=== PATIENT | male | born 1940 | race Two or more races ===

== ENCOUNTER 2020-01-06 13:28 | Emergency (ER) | payer MEDICARE, OTHER ==
[~2020-01-06] VITALS: Ht 160 cm; Wt 68.0 kg
[2020-01-06] MEDS ORDERED: FLOMAX0.4 MG ORAL (13:40)
--- NOTE | 2020-01-06 13:40 | NUR ---
ED Nurse Note: amulated to ed with family member c/o burning urination x last night and cp with sob since this am. tachycardic at 121 with bp of 134/92. ao4. nad. changed into gown; attached to monitor; safety measures met.
[2020-01-06] MEDS ORDERED: cefTRIAXone 1 GM in NS 55 ML IVPB ONE (13:45)
--- NOTE | 2020-01-06 13:45 | NUR ---
ED Nurse Note: iv access established. blood, lactic, blood cultures, urine collected; sent down to lab. ekg done at bedside; sinus tach
[2020-01-06] MEDS ORDERED: high cholesterol (13:54)
[2020-01-06] MEDS ORDERED: hypertension (13:54)
--- NOTE | 2020-01-06 14:01 | Emergency Room Report ---
History of Present Illness General Chief Complaint: Chest Pain Source: Patient Present Illness HPI Disclaimer: Please note that this report is being documented using EasyRun technology. This can lead to erroneous entry secondary to incorrect interpretation by the dictating instrument. HPI: 79-year-old male history of active prostate cancer with possible metastases to the spine currently being medicated but does not know under what regimen presents for evaluation of fever and dysuria. States he has been feeling weak with body wide aches and pains as well as burning sensation over the past 2 days. He felt weak and tired today. Came in for initial evaluation however on arrival he complained of some shortness of breath and tightness across the chest. Denies any history of CAD but he does have a history of hypertension hyperlipidemia. Denies any cough. States his chest pain shortness of breath are resolving. He has been complaining of dysuria without hematuria over the past few days. Denies any rash or skin breakdown. Denies headaches, chills, sore throat, nasal congestion, cough. He noted nausea without vomiting and without diarrhea yesterday. Decreased appetite over the past few days. PMH: Hypertension, hyperlipidemia, prostate cancer PSH: Hernia repair Allergies: Denies Social Hx: Denies Allergies: Coded Allergies: No Known Allergies (Unverified , 01/06/20) Nursing Documentation-PMH Past Medical History: No History, Except For Hx Hypertension: Yes - high cholesterol Hx Cancer: Yes - prostate Review of Systems All Other Systems: negative except mentioned in HPI Physical Exam Vital Signs Date Time Temp Pulse Resp B/P (MAP) Pulse Ox O2 Delivery O2 Flow Rate FiO2 01/06/20 13:37 100.6 121 18 134/92 (106) 95 Room Air General: Awake and alert, no acute distress HEENT: NC/AT. EOMI. hard of hearing. Dry mucous membranes. Neck: Supple, trachea midline Chest Wall: No tenderness, no deformity Cardiovascular: Tachycardic. S1 and S2 normal. No murmur appreciated Resp: Normal work of breathing. No cough, wheezing or crackles appreciated Abdomen: Abdomen is soft, nondistended. Mild tenderness over the lower abdomen particularly the suprapubic region. No right lower quadrant tenderness or rebound. Skin: Intact. No abrasions, laceration or rash over the exposed skin MSK: Normal tone and bulk. Moving all extremities. No obvious deformity. Neuro: Awake and alert. Mentating appropriately. Procedures Critical Care Time Critical Care Time Total critical care time: Approximately 31 minutes Due to a high probability of clinically significant, life threatening deterioration, the patient required the highest level of preparedness to intervene emergently and I personally spent this critical care time directly and personally managing the patient. This critical care time included obtaining a history, examining the patient, pulse oximetry, ordering and reviewing studies , ordering treatments, evaluating response to treatment and updating management plan as needed, frequent reassessment and discussion with other providers as well as arranging for ultimate disposition. This critical to care time was performed to assess and manage the high probability of life-threatening deterioration that could result in multiorgan failure. This critical care time is separate from the separately billable procedures and treating other patients. Medical Decision Making Diagnostic Impression: Primary Impression: Sepsis Additional Impression: UTI (urinary tract infection) ER Course 79-year-old male presents for evaluation of dysuria and then complaining of shortness of breath and chest discomfort. He arrives febrile and tachycardic. Differential includes was not limited to sepsis, UTI, pyelonephritis, urosepsis , ACS, angina, myocarditis, pericarditis, pneumonia, bronchitis, viral syndrome to name a few. Start a broad metabolic infectious work-up. Will initiate a 30 cc/kg fluid bolus and give empiric antibiotics. Patient will require admission. Laboratory Tests Test 01/06/20 13:45 01/06/20 14:00 01/06/20 15:00 White Blood Count 16.7 K/UL (4.8-10.8) H Red Blood Count 4.29 M/UL (4.70-6.10) L Hemoglobin 13.0 G/DL (14.2-18.0) L Hematocrit 37.0 % (42.0-52.0) L Mean Corpuscular Volume 86 FL (80-99) Mean Corpuscular Hemoglobin 30.3 PG (27.0-31.0) Mean Corpuscular Hemoglobin Concent 35.1 G/DL (32.0-36.0) Red Cell Distribution Width 11.2 % (11.6-14.8) L Platelet Count 209 K/UL (150-450) Mean Platelet Volume 4.3 FL (6.5-10.1) L Neutrophils (%) (Auto) % (45.0-75.0) Lymphocytes (%) (Auto) % (20.0-45.0) Monocytes (%) (Auto) % (1.0-10.0) Eosinophils (%) (Auto) % (0.0-3.0) Basophils (%) (Auto) % (0.0-2.0) Differential Total Cells Counted 100 Neutrophils % (Manual) 83 % (45-75) H Lymphocytes % (Manual) 7 % (20-45) L Monocytes % (Manual) 1 % (1-10) Eosinophils % (Manual) 0 % (0-3) Basophils % (Manual) 0 % (0-2) Band Neutrophils 9 % (0-8) H Platelet Estimate Adequate Platelet Morphology Normal Red Blood Cell Morphology Normal Prothrombin Time 10.7 SEC (9.30-11.50) Prothrombin Time INR 1.0 (0.9-1.1) Activated Partial Thromboplast Time 33 SEC (23-33) Sodium Level 136 MMOL/L (136-145) Potassium Level 4.0 MMOL/L (3.5-5.1) Chloride Level 102 MMOL/L (98-107) Carbon Dioxide Level 21 MMOL/L (21-32) Anion Gap 13 mmol/L (5-15) Blood Urea Nitrogen 17 mg/dL (7-18) Creatinine 1.1 MG/DL (0.55-1.30) Estimate Glomerular Filtration Rate > 60 mL/min (>60) Glucose Level 152 MG/DL (74-106) H Lactic Acid Level 2.20 mmol/L (0.4-2.0) H Pending Calcium Level 9.1 MG/DL (8.5-10.1) Total Bilirubin 1.0 MG/DL (0.2-1.0) Aspartate Amino Transferase (AST) 31 U/L (15-37) Alanine Aminotransferase (ALT) 33 U/L (12-78) Alkaline Phosphatase 91 U/L (46-116) Troponin I 0.000 ng/mL (0.000-0.056) Pro-B-Type Natriuretic Peptide 262 pg/mL (0-125) H Total Protein 7.7 G/DL (6.4-8.2) Albumin 3.4 G/DL (3.4-5.0) Globulin 4.3 g/dL Albumin/Globulin Ratio 0.8 (1.0-2.7) L Acetaminophen Level 6 MCG/ML (10-30) L Urine Color Pale yellow Urine Appearance Slightly cloudy Urine pH 6 (4.5-8.0) Urine Specific [place] 1.010 (1.005-1.035) Urine Protein 1+ (NEGATIVE) H Urine Glucose (UA) Negative (NEGATIVE) Urine Ketones Negative (NEGATIVE) Urine Blood 4+ (NEGATIVE) H Urine Nitrite Negative (NEGATIVE) Urine Bilirubin Negative (NEGATIVE) Urine Urobilinogen Normal MG/DL (0.0-1.0) Urine Leukocyte Esterase 3+ (NEGATIVE) H Urine RBC 5-10 /HPF (0 - 0) H Urine WBC 30-40 /HPF (0 - 0) H Urine Squamous Epithelial Cells None /LPF (NONE/OCC) Urine Bacteria Moderate /HPF (NONE) H EKG Diagnostic Results EKG Time: 12:46 Rate: tachycardiac Rhythm: NSR ST Segments: no acute changes Other Impression Sinus tachycardia. Normal axis. Normal intervals. No ST segment changes. No obvious [place] changes. Nonspecific T wave changes. Rhythm Strip Diag. Results Rhythm Strip Time: 12:46 EP Interpretation: yes Rate: 110s Rhythm: NSR, no PVC's, no ectopy Chest X-Ray Diagnostic Results Chest X-Ray Diagnostic Results : Chest X-Ray Ordered: Yes # of Views/Limited/Complete: 1 View Indication: Shortness of Breath EP Interpretation: Yes Interpretation: no consolidation, no effusion, no pneumothorax Impression: No acute disease Electronically Signed by: Electronically signed by Dr. Bryant Chakraborty Reevaluation Time: 15:29 Last Vital Signs Date Time Temp Pulse Resp B/P (MAP) Pulse Ox O2 Delivery O2 Flow Rate FiO2 01/06/20 13:37 100.6 121 18 134/92 (106) 95 Room Air Reevaluation Impression Sepsis reevaluation: I, Dr. Bryant Chakraborty, reevaluate the patient at 1529 Capillary refill: Less than 2 seconds Heart rate: 94 Respiratory rate:16 Initial Lactate: 2.2 Repeat Lactate: pending No signs of fluid overload Patient is improving after receiving IV fluids. No longer tachycardic. Resting comfortably. Chest x-ray unremarkable and EKG is nonischemic. Urinalysis concerning for acute urinary tract infection likely the source of his elevated white count, elevated lactate. Strong consideration for urosepsis at this time. He is received IV fluids and antibiotics. Patient will be transferred to [facility] per his insurance plan. He is stable for transfer. Disposition: XFER [facility] Condition: Stable Bryant Chakraborty MD Jan 06, 2020 14:01
[2020-01-06 14:16] LABS: MEAN CORPUSCULAR VOLUME 86 FL (80-99); PLATELET COUNT 209 K/UL (150-450); RED BLOOD COUNT 4.29 M/UL (4.70-6.10); RED CELL DISTRIBUTION WIDTH 11.2 % (11.6-14.8); WHITE BLOOD COUNT 16.7 K/UL (4.8-10.8)
[2020-01-06 14:17] VITALS: BP 134/92
[2020-01-06 14:32] LABS: ANION GAP 13 mmol/L (5-15); BLOOD UREA NITROGEN 17 mg/dL (7-18); CALCIUM 9.1 MG/DL (8.5-10.1); CARBON DIOXIDE 21 MMOL/L (21-32); CHLORIDE 102 MMOL/L (98-107); CREATININE 1.1 MG/DL (0.55-1.30); SODIUM 136 MMOL/L (136-145)
[2020-01-06 14:41] LABS: ALANINE AMINOTRANSFERASE 33 U/L (12-78); ALBUMIN 3.4 G/DL (3.4-5.0); ALBUMIN/GLOBULIN RATIO 0.8 (1.0-2.7); ALKALINE PHOSPHATASE 91 U/L (46-116); ASPARTATE AMINO TRANSFERASE 31 U/L (15-37)
[2020-01-06 14:58] LABS: BILIRUBIN, URINE NEGATIVE (NEGATIVE); COLOR,URINE PALE YELLOW; GLUCOSE, URINE (UA) NEGATIVE (NEGATIVE); KETONES,URINE NEGATIVE (NEGATIVE); LEUKOCYTE ESTERASE ,URINE 3+ (NEGATIVE); NITRITE,URINE NEGATIVE (NEGATIVE); PH,URINE 6 (4.5-8.0); PROTEIN,URINE 1+ (NEGATIVE); UROBILINOGEN,URINE NORMAL MG/DL (0.0-1.0)
[2020-01-06 15:03] LABS: APPEARANCE,URINE SLIGHTLY CLOUDY
--- NOTE | 2020-01-06 15:12 | NUR ---
ED Nurse Note: reflex lactic drawn; sent down to lab.
[2020-01-06 15:35] VITALS: BP 121/59
--- NOTE | 2020-01-06 15:37 | NUR ---
ED Nurse Note: report given to sabas barragan. patient to be admitted to [facility] under the care of jo lopez. report given to [facility]. patient stable for transfer. patient left via gurney with all belongings and transfer packet. accompanied by family member.
[2020-01-06 15:39] VITALS: BP 121/59
--- NOTE | 2020-01-07 13:03 | Diagnostic Imaging Report ---
Indication: Dyspnea Comparison: None A single view chest radiograph was obtained. Findings: No definite infiltrate or pulmonary vascular congestion identified. The heart is normal size. The aorta is mildly enlarged consistent with atherosclerotic vascular disease. The bones are osteopenic. There are thoracic vertebral enthesophytes at multiple levels. Impression: No acute disease
== END 2020-01-06 15:35 | disposition short-term general hospital (02) ==
LOC: EDBEDREQ 13:54 → EMR 14:08
DX: A41.9 Sepsis, unspecified organism (principal); N39.0 Urinary tract infection, site not specified; E78.5 Hyperlipidemia, unspecified; I10 Essential (primary) hypertension; Z85.46 Personal history of malignant neoplasm of prostate; E78.00 Pure hypercholesterolemia, unspecified; R00.0 Tachycardia, unspecified
CPT/HCPCS: 36415; 71045; 80053; 81003; 83605; 83880; 84484; 85007; 85025; 85610; 85730; 87040; 87086; 87181; 93005; 96361; 96365; 99291; G0480; J0696; J7030

== ENCOUNTER 2020-03-03 11:11 | Emergency (ER) | payer MEDICARE ==
[~2020-03-03] VITALS: Ht 152.4 cm; Wt 54.4 kg
[~2020-03-03 11:11] MED LIST: FLOMAX0.4 MG ORAL; high cholesterol; hypertension
[2020-03-03 11:46] VITALS: BP 168/82
[2020-03-03 12:06] LABS: BASOPHILS % (AUTO) 1.1 % (0.0-2.0); EOSINOPHILS % (AUTO) 0.8 % (0.0-3.0); HEMATOCRIT 35.9 % (42.0-52.0); HEMOGLOBIN 12.5 G/DL (14.2-18.0); MEAN CORPUSCULAR VOLUME 82 FL (80-99); MONOCYTES % (AUTO) 5.1 % (1.0-10.0); PLATELET COUNT 283 K/UL (150-450); RED BLOOD COUNT 4.37 M/UL (4.70-6.10); RED CELL DISTRIBUTION WIDTH 10.9 % (11.6-14.8); WHITE BLOOD COUNT 6.4 K/UL (4.8-10.8)
[2020-03-03 12:22] LABS: ANION GAP 11 mmol/L (5-15); BLOOD UREA NITROGEN 15 mg/dL (7-18); CARBON DIOXIDE 23 MMOL/L (21-32); CHLORIDE 106 MMOL/L (98-107); CREATININE 0.9 MG/DL (0.55-1.30); POTASSIUM 4.8 MMOL/L (3.5-5.1); SODIUM 140 MMOL/L (136-145)
[2020-03-03 12:29] LABS: ALANINE AMINOTRANSFERASE 15 U/L (12-78); ALBUMIN 3.2 G/DL (3.4-5.0); ALBUMIN/GLOBULIN RATIO 0.7 (1.0-2.7); ALKALINE PHOSPHATASE 97 U/L (46-116); ASPARTATE AMINO TRANSFERASE 29 U/L (15-37); BILIRUBIN,TOTAL 0.4 MG/DL (0.2-1.0); CKMB < 0.5 NG/ML (0.0-3.6); CREATINE KINASE 94 U/L (26-308)
[2020-03-03 12:31] VITALS: BP 128/103
--- NOTE | 2020-03-03 12:32 | Emergency Room Report ---
History of Present Illness General Chief Complaint: Chest Pain Source: Patient Present Illness HPI Patient presents with complaints of chest pain midsternal reports that the discomfort comes on at rest Denies any change with position or exertion Denies any headache Ongoing for the past 2 to 3 days however this afternoon while sitting he felt increased heaviness and paramedics were summoned Denies any vomiting or diarrhea denies any fevers or chills denies any pleurisy denies any rash Allergies: Coded Allergies: No Known Allergies (Unverified , 01/06/20) COVID-19 Screening Contact w/high risk pt: No Recent Travel to affected area: No Experienced COVID-19 symptoms?: Yes COVID-19 symptoms experienced: Shortness of Breath Patient History Past Medical History: see triage record Reviewed Nursing Documentation: PMH: Agreed; PSxH: Agreed Nursing Documentation-PMH Past Medical History: No History, Except For Hx Hypertension: Yes Hx Cancer: Yes - prostate Review of Systems All Other Systems: negative except mentioned in HPI Physical Exam Vital Signs Date Time Temp Pulse Resp B/P (MAP) Pulse Ox O2 Delivery O2 Flow Rate FiO2 03/03/20 11:12 98.2 103 21 168/82 (110) 99 Room Air Sp02 EP Interpretation: reviewed, normal General Appearance: well appearing, no apparent distress Head: normocephalic, atraumatic Eyes: bilateral eye PERRL, bilateral eye EOMI ENT: hearing grossly normal, normal pharynx, TMs + canals normal, uvula midline Neck: full range of motion, supple, no meningismus, no bony tend Respiratory: lungs clear, normal breath sounds, no rhonchi, no respiratory distress, no retraction, no accessory muscle use Cardiovascular #1: normal peripheral pulses, regular rate, rhythm, no edema, no gallop, no JVD, no murmur Gastrointestinal: normal bowel sounds, non tender, soft, no mass, no organomegaly, non-distended, no guarding, no hernia, no pulsatile mass, no rebound Genitourinary: no CVA tenderness Musculoskeletal: normal inspection Neurologic: motor strength/tone normal, 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, oriented x3 , sensory intact, responsive Psychiatric: mood/affect normal Skin: no rash Lymphatic: normal inspection, no adenopathy Medical Decision Making Diagnostic Impression: Primary Impression: Acute coronary syndrome ER Course Patient is a fairly complex patient with multiple differential to consideration including but not limited to cardiac cardiopulmonary and vascular emergencies Patient's blood work is appropriate EKG shows nonspecific findings Patient did receive aspirin at this time does not have any active chest pain and nitroglycerin has been held On reevaluation patient remains chest pain-free patient admitted for further inpatient care Labs Test 03/03/20 11:30 03/03/20 14:25 White Blood Count 6.4 K/UL (4.8-10.8) Red Blood Count 4.37 M/UL (4.70-6.10) Hemoglobin 12.5 G/DL (14.2-18.0) Hematocrit 35.9 % (42.0-52.0) Mean Corpuscular Volume 82 FL (80-99) Mean Corpuscular Hemoglobin 28.7 PG (27.0-31.0) Mean Corpuscular Hemoglobin Concent 35.0 G/DL (32.0-36.0) Red Cell Distribution Width 10.9 % (11.6-14.8) Platelet Count 283 K/UL (150-450) Mean Platelet Volume 4.5 FL (6.5-10.1) Neutrophils (%) (Auto) 67.0 % (45.0-75.0) Lymphocytes (%) (Auto) 26.0 % (20.0-45.0) Monocytes (%) (Auto) 5.1 % (1.0-10.0) Eosinophils (%) (Auto) 0.8 % (0.0-3.0) Basophils (%) (Auto) 1.1 % (0.0-2.0) Sodium Level 140 MMOL/L (136-145) Potassium Level 4.8 MMOL/L (3.5-5.1) Chloride Level 106 MMOL/L (98-107) Carbon Dioxide Level 23 MMOL/L (21-32) Anion Gap 11 mmol/L (5-15) Blood Urea Nitrogen 15 mg/dL (7-18) Creatinine 0.9 MG/DL (0.55-1.30) Estimat Glomerular Filtration Rate > 60 mL/min (>60) Glucose Level 114 MG/DL (74-106) Lactic Acid Level 1.90 mmol/L (0.4-2.0) Calcium Level 9.0 MG/DL (8.5-10.1) Total Bilirubin 0.4 MG/DL (0.2-1.0) Aspartate Amino Transf (AST/SGOT) 29 U/L (15-37) Alanine Aminotransferase (ALT/SGPT) 15 U/L (12-78) Alkaline Phosphatase 97 U/L (46-116) Total Creatine Kinase 94 U/L (26-308) Creatine Kinase MB < 0.5 NG/ML (0.0-3.6) Creatine Kinase MB Relative Index 0.5 Troponin I 0.000 ng/mL (0.000-0.056) Pro-B-Type Natriuretic Peptide 70 pg/mL (0-125) Total Protein 7.8 G/DL (6.4-8.2) Albumin 3.2 G/DL (3.4-5.0) Globulin 4.6 g/dL Albumin/Globulin Ratio 0.7 (1.0-2.7) Lipase 164 U/L (73-393) Urine Color Pale yellow Urine Appearance Clear Urine pH 7 (4.5-8.0) Urine Specific [place] 1.010 (1.005-1.035) Urine Protein Negative (NEGATIVE) Urine Glucose (UA) Negative (NEGATIVE) Urine Ketones Negative (NEGATIVE) Urine Blood 2+ (NEGATIVE) Urine Nitrite Negative (NEGATIVE) Urine Bilirubin Negative (NEGATIVE) Urine Urobilinogen Normal MG/DL (0.0-1.0) Urine Leukocyte Esterase 3+ (NEGATIVE) Urine RBC 0-2 /HPF (0 - 0) Urine WBC 2-4 /HPF (0 - 0) Urine Squamous Epithelial Cells Occasional /LPF Urine Bacteria Few /HPF (NONE) EKG Diagnostic Results Rate: normal Rhythm: NSR ST Segments: other - Nonspecific ST and T wave changes Rhythm Strip Diag. Results EP Interpretation: yes Rate: 66 Rhythm: NSR, no PVC's, no ectopy Chest X-Ray Diagnostic Results Chest X-Ray Diagnostic Results : Chest X-Ray Ordered: Yes # of Views/Limited/Complete: 1 View Indication: Chest Pain EP Interpretation: Yes Interpretation: no consolidation, no effusion, no pneumothorax Impression: No acute disease Electronically Signed by: Clemente Dial DO Last Vital Signs Date Time Temp Pulse Resp B/P (MAP) Pulse Ox O2 Delivery O2 Flow Rate FiO2 20 12:31 98.2 87 17 128/103 100 Room Air Status: improved Disposition: ADMITTED INPATIENT Condition: Serious Referrals: [facility],REFERRING (PCP) Clemente Dial DO March 03, 2020 12:32
[2020-03-03 14:49] LABS: APPEARANCE,URINE CLEAR; BILIRUBIN, URINE NEGATIVE (NEGATIVE); COLOR,URINE PALE YELLOW; GLUCOSE, URINE (UA) NEGATIVE (NEGATIVE); KETONES,URINE NEGATIVE (NEGATIVE); LEUKOCYTE ESTERASE ,URINE 3+ (NEGATIVE); NITRITE,URINE NEGATIVE (NEGATIVE); PH,URINE 7 (4.5-8.0); PROTEIN,URINE NEGATIVE (NEGATIVE); UROBILINOGEN,URINE NORMAL MG/DL (0.0-1.0)
--- NOTE | 2020-03-03 15:31 | Diagnostic Imaging Report ---
Indication: Chest pain Technique: One view of the chest Comparison: 01/06/2020 Findings: There is a small retrocardiac hiatal hernia again noted. The lungs and pleural spaces are clear. The heart size is normal. No significant interim change Impression: No acute process
[2020-03-03 17:45] VITALS: BP 127/97
[2020-03-03 19:16] VITALS: BP 162/87
[2020-03-03] MEDS ORDERED: Aspirin Baby 81mg ORAL STA (23:02)
[2020-03-03] MEDS ORDERED: Tamsulosin 0.4mg cap ORAL SCH (23:15)
[2020-03-03 23:43] VITALS: BP 161/68
--- NOTE | 2020-03-04 01:00 | Consultation ---
DATE OF CONSULTATION: 03/03/2020 CARDIOLOGY CONSULTATION CONSULTING PHYSICIAN: Juan Landry MD. REQUESTING PHYSICIAN: David Yuan MD. REASON FOR CONSULTATION: Chest pain. HISTORY OF PRESENT ILLNESS: This is an 79-year-old male. The patient has had several days of chest discomfort described as a heaviness. It has been occurring at rest. Today, it occurred with increasing intensity and planned the paramedics to be summoned. The patient denied any associated symptoms including fever, chills, cough, shortness of breath, or diaphoresis. The pain was not changed with position or increased with exertion. In the emergency room, blood pressure initially was 168/82, heart rate 103, and respiratory rate 21 with oxygen saturation of 99% on room air. The patient's initial troponin level was zero. His electrocardiogram revealed sinus rhythm with no acute changes. PAST MEDICAL HISTORY: Hypertension, prostatic hypertrophy, and hyperlipidemia. ALLERGIES: None known. MEDICATIONS: Medications prior to admission, reviewed and reconciled. FAMILY HISTORY: Noncontributory. SOCIAL HISTORY: Negative for smoking, alcohol, or substance abuse. REVIEW OF SYSTEMS: A 12-point review of systems performed. All negative other than outlined above. PHYSICAL EXAMINATION: VITAL SIGNS: Afebrile. Vitals as noted above. NECK: Jugular venous pressure normal. LUNGS: Clear. CARDIAC: Regular. Normal S1, S2 with a fourth heart sound. ABDOMEN: Soft. EXTREMITIES: No edema. Distal pulses 2+. LABORATORY AND DIAGNOSTIC DATA: Labs notable for white count 6.4, hemoglobin 12.5. Chemistry panel within normal limits. Glucose 114. Lactic acid 1.9. Troponin negative. Albumin 3.2. CK 94. Lipase 164. Chest x-ray with no acute process. IMPRESSION: 1. Acute coronary syndrome. 2. Hypertension and hypertensive heart disease. 3. History of hyperlipidemia. 4. History of prostatic hypertrophy. PLAN: 1. Cardiac monitoring. 2. Beta-blockade. 3. Antiplatelet therapy with aspirin. 4. Continue statin drug. 5. Echocardiogram. 6. Consideration for noninvasive assessment of coronary flow reserve to follow depending on clinical course, response to initial therapies, and results of aforementioned study. Juan Landry M.D. DR: Adiel JOB#: [id number] CC:
[2020-03-04 02:26] VITALS: BP 149/72
[2020-03-04 04:00] LABS: BASOPHILS % (AUTO) 1.3 % (0.0-2.0); EOSINOPHILS % (AUTO) 1.3 % (0.0-3.0); HEMATOCRIT 34.4 % (42.0-52.0); LYMPHOCYTES % (AUTO) 28.9 % (20.0-45.0); MEAN CORPUSCULAR VOLUME 82 FL (80-99); MONOCYTES % (AUTO) 6.4 % (1.0-10.0); NEUTROPHILS % (AUTO) 62.2 % (45.0-75.0); PLATELET COUNT 288 K/UL (150-450); RED BLOOD COUNT 4.22 M/UL (4.70-6.10); RED CELL DISTRIBUTION WIDTH 10.5 % (11.6-14.8)
[2020-03-04 04:18] LABS: ANION GAP 10 mmol/L (5-15); BLOOD UREA NITROGEN 14 mg/dL (7-18); CALCIUM 8.9 MG/DL (8.5-10.1); CARBON DIOXIDE 26 MMOL/L (21-32); CHLORIDE 107 MMOL/L (98-107); CREATININE 0.9 MG/DL (0.55-1.30); POTASSIUM 3.9 MMOL/L (3.5-5.1); SODIUM 143 MMOL/L (136-145)
[2020-03-04 04:31] LABS: ALANINE AMINOTRANSFERASE 18 U/L (12-78); ALBUMIN 3.1 G/DL (3.4-5.0); ALBUMIN/GLOBULIN RATIO 0.7 (1.0-2.7); ALKALINE PHOSPHATASE 91 U/L (46-116); ASPARTATE AMINO TRANSFERASE 18 U/L (15-37); BILIRUBIN,TOTAL 0.4 MG/DL (0.2-1.0); CHOLESTEROL 156 MG/DL (< 200); HDL CHOLESTEROL 50 MG/DL (40-60); TRIGLYCERIDES 77 MG/DL (30-150)
[2020-03-04 04:48] VITALS: BP 107/65
[2020-03-04 06:39] VITALS: BP 115/64
[2020-03-04 08:07] VITALS: BP 115/64
[2020-03-04] MEDS ORDERED: Aspirin Baby 81mg ORAL SCH (09:00)
[2020-03-04] MEDS ORDERED: Heparin 5000 units/ml inj SUBQ SCH (09:00)
[2020-03-04 10:10] VITALS: BP 115/70
[2020-03-04] MEDS ORDERED: LISINOPRIL2.5 MG ORAL (11:43)
[2020-03-04] MEDS ORDERED: LIPITOR10 MG ORAL (11:43)
[2020-03-04 11:48] VITALS: BP 107/72
--- NOTE | 2020-03-04 16:26 | History & Physical ---
History and Physical History & Physicial HISTORY OF PRESENT ILLNESS: This is an 79-year-old male who is admitted with several days of chest discomfort described as a heaviness. It has been occurring at rest. It occurred with increasing intensity and planned the paramedics to be summoned. The patient denied any associated symptoms including fever, chills, cough, shortness of breath, or diaphoresis. The pain was not changed with position or increased with exertion. In the emergency room, blood pressure initially was 168/82, heart rate 103, and respiratory rate 21 with oxygen saturation of 99% on room air. The patient's initial troponin level was zero. His electrocardiogram revealed sinus rhythm with no acute changes. PAST MEDICAL HISTORY: Hypertension, prostatic hypertrophy, and hyperlipidemia. ALLERGIES: None known. MEDICATIONS: Medications prior to admission, reviewed and reconciled. FAMILY HISTORY: Noncontributory. SOCIAL HISTORY: Negative for smoking, alcohol, or substance abuse. REVIEW OF SYSTEMS: A 12-point review of systems performed. All negative other than outlined above. PHYSICAL EXAMINATION: VITAL SIGNS: Afebrile. Vitals as noted above. NECK: Jugular venous pressure normal. LUNGS: Clear. CARDIAC: Regular. Normal S1, S2 with a fourth heart sound. ABDOMEN: Soft. EXTREMITIES: No edema. Distal pulses 2+. LABORATORY AND DIAGNOSTIC DATA: Labs notable for white count 6.4, hemoglobin 12.5. Chemistry panel within normal limits. Glucose 114. Lactic acid 1.9. Troponin negative. Albumin 3.2. CK 94. Lipase 164. Chest x-ray with no acute process. IMPRESSION: 1. Acute coronary syndrome. 2. Hypertension and hypertensive heart disease. 3. History of hyperlipidemia. 4. History of prostatic hypertrophy. PLAN: 1. Cardiac monitoring. 2. Beta-blockade. 3. Antiplatelet therapy with aspirin. 4. Continue statin drug. 5. Echocardiogram. 6. Consideration for noninvasive assessment of coronary flow reserve to follow depending on clinical course, response to initial therapies, and results of aforementioned study. David Yuan M.D. David Yuan MD March 04, 2020 16:26
--- NOTE | 2020-03-04 23:00 | Progress Note ---
DATE: 03/04/2020 CARDIOLOGY PROGRESS NOTE SUBJECTIVE: The patient has not had any chest pain. No shortness of breath. He feels well. He thinks he can go home. Monitored rhythm, sinus. No arrhythmias. Troponins negative x3. PHYSICAL EXAMINATION: VITAL SIGNS: Blood pressure 115/64, pulse 70, respiratory rate 19, afebrile, oxygen saturation 99% on room air. LUNGS: Clear. CARDIAC: Regular. NORMAL: S1 and S2 with no murmur. ABDOMEN: Soft. EXTREMITIES: No edema. LABORATORY AND DIAGNOSTIC DATA: White count 6, hemoglobin 12. Potassium 3.9, BUN 14, and creatinine 0.9. LDL cholesterol 101 and HDL is 50. TSH 2.1. Glucose 124. IMPRESSION: 1. Chest pain episode probably anginal but not resolved, no signs of acute coronary insufficiency. 2. Low likelihood for flow-limiting coronary disease. PLAN: 1. Recommend continue current therapy including aspirin, statin drug, and low dose beta-sandro. 2. Follow up as an outpatient with assessment of coronary flow reserve to follow. 3. The patient advised to return to hospital or contact me immediately should he have recurring chest pain or shortness of breath primary care physician. Juan Landry M.D. DR: Arleen JOB#: [id number] CC:
== END 2020-03-04 11:48 | disposition home or self-care (01) ==
LOC: EMR 11:38 → 2E 13:45 → UNDOADMIN 13:45 → EDBEDREQ 03-04 08:40 → CANBEDREQ 03-04 10:55 → EMR 03-04 11:48
DX: I24.9 Acute ischemic heart disease, unspecified (principal); I10 Essential (primary) hypertension; Z85.46 Personal history of malignant neoplasm of prostate
CPT/HCPCS: 36415; 71045; 80053; 80061; 81003; 82550; 82553; 83605; 83690; 83880; 84443; 84484; 85025; 87040; 93005; 99285; J1644